=== PATIENT | female | born 1950 | race Caucasian/White ===

== ENCOUNTER 2019-02-24 15:35 | Outpatient (CLI) | payer MEDICARE ==
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
== END 2019-02-24 15:36 | disposition home or self-care (01) ==
LOC: CT 15:35
PROVIDERS: ATTEND Family Medicine
DX: F17.200 Nicotine dependence, unspecified, uncomplicated (principal); J44.9 Chronic obstructive pulmonary disease, unspecified; S22.079A Unspecified fracture of T9-T10 vertebra, initial encounter for closed fracture; R91.1 Solitary pulmonary nodule; I25.10 Atherosclerotic heart disease of native coronary artery without angina pectoris; Z87.828 Personal history of other (healed) physical injury and trauma
CPT/HCPCS: G0297

== ENCOUNTER 2022-03-03 10:37 | Outpatient (CLI) | payer MEDICARE | END 2022-03-03 10:38 | disposition home or self-care (01) | LOC: BICRAD 10:37 | PROVIDERS: ATTEND Internal Medicine Hematology & Oncology | DX: C90.00 Multiple myeloma not having achieved remission (principal); D47.2 Monoclonal gammopathy | CPT/HCPCS: 77075 ==

== ENCOUNTER 2022-03-18 08:54 | Outpatient (CLI) | payer MEDICARE | END 2022-03-18 08:55 | disposition home or self-care (01) | LOC: BICMAMMO 08:54 | PROVIDERS: ATTEND Internal Medicine Hematology & Oncology | DX: M81.8 Other osteoporosis without current pathological fracture (principal) | CPT/HCPCS: 77080 ==

== ENCOUNTER 2022-10-28 12:37 | Outpatient (CLI) | payer MEDICARE ==
[~2022-10-28 12:37] MED LIST: Iopamidol 370 76% 100 ML VIAL ONE
== END 2022-10-28 12:38 | disposition home or self-care (01) ==
LOC: BICCT 12:37
PROVIDERS: ATTEND Thoracic Surgery (Cardiothoracic Vascular Surgery)
DX: I73.9 Peripheral vascular disease, unspecified (principal); I70.0 Atherosclerosis of aorta; I70.203 Unspecified atherosclerosis of native arteries of extremities, bilateral legs; I70.8 Atherosclerosis of other arteries
CPT/HCPCS: 75635; 82565; Q9967